=== PATIENT | female | born 1960 | race Caucasian/White ===

== ENCOUNTER 2024-02-02 08:21 | Day surgery (SDC) | payer OTHER ==
[2024-01-25 13:48] VITALS: BMI 26.7
[2024-02-02] MEDS ORDERED: PROPOFOL 40 ML ONE (08:26)
[2024-02-02 09:16] VITALS: TEMP 97.1
[2024-02-02 09:44] VITALS: BP 121/74; PULSE 71; RESP 18
== END 2024-02-02 09:56 | disposition home or self-care (01) ==
LOC: FASU-ENDO 08:21
PROVIDERS: ATTEND Internal Medicine Gastroenterology
PROC: 0DJD8ZZ Inspection of Lower Intestinal Tract, Via Natural or Artificial Opening Endoscopic (ICD-10-PCS; principal; 2024-02-02 08:56)
DX: Z12.11 Encounter for screening for malignant neoplasm of colon (principal); K57.30 Diverticulosis of large intestine without perforation or abscess without bleeding; K64.1 Second degree hemorrhoids